=== PATIENT | female | born 1980 | race Caucasian/White ===

== ENCOUNTER → 2017-09-07 | Outpatient (CLI) | payer OTHER ==
[~2017-09-07] MED LIST: ALBU90OI INH; AZIT500; Amoxicillin500 MG PO; BENZ100A PO; BUSP10 PO; CEPH500 PO; CITA20; CLIN150 PO; CLON.5 PO; CLON1; CLON1 PO; CLON2 PO; CRUTCH3 USE; CYCL10 PO; Cleocin HCl300 MG PO; DESV50 PO; DOXY100 PO; ELET40TA PO; ESCI10 PO; ESTR2 PO; FENT25TP TOP; FENT50TP TOP; HYDACE10B PO; HYDACE5 PO; HYDACE5325; Hydroxyzine HCl50 MG; IBUP200 PO; IBUP600 PO; IBUP800 PO; INDO25 PO; Inderal 20 mg T20 MG; KETO10 PO; METH5 PO; METPRE4DP PO; NAPR500EC PO; Naprosyn500 MG PO; OXYACE10 PO; OXYACE5T PO; OXYACE7.5T; OXYACE7.5T PO; OXYCODONE PO; Omeprazole Dr 20 Mg; PENVK500 PO; PERCOCET PO; PROC5; PROM25; PROM25 PO; PROP10; Pepcid20 MG PO; Peridex480 ML SS; Prednisone20 MG PO; RXCEPH500 PO; RXCYCL10 PO; RXHYDACE PO; RXOXYACE PO; RXPROM25 PO; RXSULTRIDS PO; SUBOXONE 8 MG-1 EACH SL; SULTRIDS; SULTRIDS PO; SUMA25 PO; TRAZ50; VENL150ER PO; VENL37.5 PO; Zithromax250 MG PO; Zofran Odt4 MG SL; [UNRECOGNIZED DRUG - CODE] PO; [UNRECOGNIZED DRUG - OTHER]
== END ==
LOC: LAB 13:26 → LAB SHORT 13:26
DX: F11.21 Opioid dependence, in remission (principal)
CPT/HCPCS: G0480

== ENCOUNTER 2020-02-27 01:04 | Emergency (ER) | payer OTHER ==
[~2020-02-27] VITALS: Ht 165.1 cm; Wt 68.0 kg
[2020-02-27 03:20] LABS: BASOPHILS ABSOLUTE AUTO 0.07 K/mm3 (0.00-0.23); BASOPHILS PERCENT AUTO 1 % (0-2); EOSINOPHILS ABSOLUTE AUTO 0.37 K/mm3 (0.00-0.68); EOSINOPHILS PERCENT AUTO 5 % (0-6); Hematocrit 37.5 % (33.0-51.0); Hemoglobin 12.1 g/dL (11.5-16.0); IMMATURE GRAN ABSOLUTE AUTO 0.01 K/mm3 (0.00-0.10); IMMATURE GRAN PERCENT AUTO 0 % (0-1); LYMPHOCYTES ABSOLUTE AUTO 3.06 K/mm3 (0.84-5.20); LYMPHOCYTES PERCENT AUTO 41 % (21-46); MONOCYTES ABSOLUTE AUTO 0.41 K/mm3 (0.16-1.47); MONOCYTES PERCENT AUTO 6 % (4-13); Mean Corpuscular HGB 27.7 pg (26.0-34.0); Mean Corpuscular HGB Conc 32.3 g/dL (31.5-36.5); Mean Corpuscular Volume 86 fL (80-100); Mean Platelet Volume 10.6 fL (9.1-12.4); NEUTROPHILS PERCENT AUTO 48 % (41-73); Platelet Count 203 K/mm3 (150-400); RDW Coefficient Variation 13.7 % (11.7-14.2); RDW Standard Deviation 42.9 fL (35.1-46.3); Red Blood Cell Count 4.37 M/mm3 (3.80-5.20); White Blood Cell Count 7.52 K/mm3 (4.00-11.30)
[2020-02-27 03:39] LABS: Alanine Aminotransfer (ALT/SGP 15 U/L (12-78); Albumin, Blood 3.3 g/dL (3.4-5.0); Albumin/Globulin Ratio 0.8 (0.8-1.8); Alk Phos 93 U/L (50-136); Anion Gap 5 mmol/L (6-16); Aspartate Aminotrans (AST/SGOT 15 U/L (12-37); Bilirubin, Total 0.2 mg/dL (0.1-1.0); Blood Urea Nitrogen 15 mg/dL (8-24); Bun/Creatinine Ratio 20.7 (12.0-20.0); CO2, Blood 31 mmol/L (21-32); Calcium, Blood 8.9 mg/dL (8.5-10.1); Chloride, Blood 105 mmol/L (98-108); Creatinine, Blood 0.73 mg/dL (0.40-1.00); Globulin, Blood 4.2 g/dL (2.2-4.0); Glomerular Filtration Rate >60 (60-); Glucose, Blood 115 mg/dL (70-99); Potassium, Blood 3.9 mmol/L (3.5-5.5); Sodium, Blood 141 mmol/L (136-145); Total Protein, Blood 7.5 g/dL (6.4-8.2)
== END 2020-02-27 04:22 | disposition home or self-care (01) ==
LOC: ER 01:04
PROVIDERS: Emergency Medicine
DX: M79.622 Pain in left upper arm (principal); F11.90 Opioid use, unspecified, uncomplicated; F17.210 Nicotine dependence, cigarettes, uncomplicated; Z88.8 Allergy status to other drugs, medicaments and biological substances
CPT/HCPCS: 36415; 80053; 83605; 85025; 93971; 99284-25; J7030